=== PATIENT | female | born 1990 | race Caucasian/White ===

== ENCOUNTER 2020-10-07 11:57 | Emergency (ER) | payer OTHER, SELFPAY ==
[2020-10-07 12:29] VITALS: BP 174/107; PULSE 95; RESP 18; TEMP 36.9; O2SAT 100; BMI 38.5
--- NOTE | 2020-10-07 12:57 | W.ED.GENADLT ---
HPI - General Adult General: Chief complaint: General Medical Stated complaint: HTN, N/V Time Seen by Provider: 10/07/20 12:44 History of Present Illness: HPI narrative: The patient is a 30-year-old female who comes to the ER complaining of nausea, vomiting, high blood pressure, and migraine. She says she is on day 4 of a migraine and had some tingling in her right arm earlier today which has improved except she has mild tingling in her right thumb left over. She says she gets these problems with her migraine and they usually resolve after the fourth day and a good rest. 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 She takes enalapril for her blood pressure. When she does not have a headache her blood pressure is usually normal. Her job placement specialist asked her to get her blood pressure lowered and he will change the medications for her blood pressure regimen upon release. Onset (ago): day(s) (4) Location: head Severity: moderate Quality: sharp Pain Consistency: constant Relieving factors: none Exacerbating factors: none Associated symptoms: Reports headache(s), nausea and vomiting; Deny chest pain, confusion, dyspnea, rash or palpitations Review of Systems General: Reports: 10 or more systems reviewed and unremarkable except in HPI and below Const: Denies: fatigue Eyes: Denies: change in vision, blurry vision or eye redness ENMT: Denies: throat pain, swelling of lips/tongue, ear or mastoid pain or nasal congestion Card: Denies: chest pain, palpitations, irregular heart rhythm, edema, dyspnea on exertion or orthopnea Resp: Denies: dyspnea, productive cough or non-productive cough GI: Reports: nausea and vomiting : Denies: flank pain, difficulty voiding, urinary frequency or urinary urgency Musc: Denies: neck pain, back pain, extremity pain, joint pain, joint redness, limited range of motion or muscle weakness Skin/Breast: Denies: rash, pruritus, erythema, skin pain or skin tenderness Neuro: Reports: headache(s); Denies: numbness in extremities, weakness in extremities, sensory changes, difficulty walking, dizziness, confusion or Slurred speech present Psych: Denies: anxiety or depression Endo: Denies: polyuria All/Imm: Denies: urticaria, throat swelling or tongue swelling Physical Exam Const: COMMON NORMALS: no acute distress, average body habitus, patient oriented x3, no limitations, healthy appearing, alert and well nourished GENERAL APPEARANCE: cooperative, comfortable, well kempt and well developed ORIENTATION/CONSCIOUSNESS: Yes awake, Yes oriented to person, Yes oriented to place and Yes oriented to time HENMT: COMMON NORMALS: normocephalic, external ears normal and Normal external nose present HEAD & SCALP: normal to inspection and normocephalic NOSE: Normal external nose present EXTERNAL EAR: Yes external ears normal MOUTH: Normal oral and palatal mucosa present THROAT: posterior oropharynx normal Eye: COMMON NORMALS: Equal, round and reactive pupils present and EOMs intact bilaterally GENERAL EYE: appearance normal, both eyes and all related structures PUPIL: Yes Equal, round and reactive pupils present Neck/C-Spine: COMMON NORMALS: full ROM, no lymphadenopathy, no meningeal signs and no JVD GENERAL: Yes normal visual inspection Lymph: LYMPHATIC: no lymphadenopathy noted Chest: COMMONS NORMALS: normal inspection of the chest and normal palpation of entire chest wall Resp: COMMON NORMALS: normal respiratory effort, No retractions, No use of accessory muscles, clear to auscultation bilaterally and percussion normal EFFORT & INSPECTION: Yes able to speak in complete sentences AUSCULTATION: clear to auscultation bilaterally PERCUSSION: percussion normal Cardio: COMMON NORMALS: no JVD, regular rate, regular rhythm, S1 normal heart sound present, S2 normal heart sound present and Peripheral pulses 2+ throughout RATE: regular rate RHYTHM: regular rhythm HEART SOUNDS: S1 normal heart sound present and S2 normal heart sound present PERIPHERAL PULSES: Peripheral pulses 2+ throughout GI: COMMON NORMALS: Normal to inspection, nondistended, normoactive bowel sounds present, Soft to palpation, non-tender and no masses INSPECTION: Yes normal to inspection PALPATION: Yes Soft to palpation : COMMON NORMALS: Yes no CVA tenderness BLADDER/KIDNEY EXAM: Yes no CVA tenderness Back/Pelvis: COMMON NORMALS: no CVA tenderness, thoracic and lumbar spine normal to inspection, no thoracic nor lumbar tenderness and thoraco-lumbar ROM normal Extremity: COMMON NORMALS: normal to inspection, full ROM, capillary refill normal, no joint enlargement and no pedal edema GENERAL: Yes normal exam except as noted Neuro: COMMON NORMALS: patient oriented x3, CN's II-XII intact bilaterally, moves all extremities, no focal motor deficits, no sensory deficits noted and gait normal SENSORIUM/ORIENTATION: Yes alert, Yes oriented to person, Yes oriented to place and Yes oriented to time MENINGEAL SIGNS: Yes no meningeal signs Psych: COMMON NORMALS: mental status grossly normal, Normal thought process present, cooperative, normal affect and speech normal APPEARANCE: Yes well kempt ATTITUDE: Yes calm SPEECH: Yes normal speech THOUGHT PROCESS: Normal thought process present Skin: COMMON NORMALS: no rashes or lesions noted GENERAL SKIN EXAM: no rashes or lesions noted Course Vital Signs: Vital signs: Vital Signs Temperature 98.4 F 10/07/20 12:29 Pulse Rate 60 10/07/20 14:37 Respiratory Rate 16 10/07/20 14:37 Blood Pressure 139/84 10/07/20 14:37 Pulse Oximetry 99 10/07/20 14:37 MDM - General Adult MDM Narrative: Medical decision making narrative: Her headache and blood pressure improved after the fluids, clonidine, Zofran. She is requesting discharge. She will follow up with her nephrology specialist later today to discuss her blood pressure medication further and I recommended she follow-up with primary care early next week for a checkup. ER with worsening symptoms at any time Lab Data: Labs: Lab Results 10/07/20 10/07/20 10/07/20 Range/Units 13:05 13:05 13:05 WBC 11.2 H (4.0-10.0) 10^3/ uL RBC 4.84 (4.1-5.3) 10^6/u L Hgb 10.2 L (11.5-15.3) g/dL Hct 32.7 L (37.0-47.0) % MCV 67.6 L (81-99) fL MCH 21.1 L (28.0-34.0) pg MCHC 31.2 (30.0-36.0) g/dL RDW 20.1 H (12.1-15.1) % Plt Count 399 (130-400) 10^3/c mm MPV 11.4 H (7.4-10.4) fL Neut % (Auto) 69.1 % Lymph % (Auto) 21.6 % [place] % (Auto) 5.9 % Eos % (Auto) 2.3 % Baso % (Auto) 0.6 % Neut # (Auto) 7.70 (1.8-7.7) 10^3/u L Lymph # (Auto) 2.4 (0.8-4.8) 10^3/u L [place] # (Auto) 0.7 (0.2-0.9) 10^3/u L Eos # (Auto) 0.3 (0.0-0.8) 10^3/u L Baso # (Auto) 0.1 (0.0-0.1) 10^3/u L Nucleated RBC % (a uto) 0 % Nucleated RBCs # 0.0 /100WBC Sodium 142 (136-145) mmol/L Potassium 4.0 (3.5-5.1) mmol/L Chloride 108 H (98-107) mmol/L Carbon Dioxide 22 (22-29) mmol/L Anion Gap 16.0 (5-19) BUN 16 (6-20) mg/dL Creatinine 0.7 (0.5-0.9) mg/dL GFR Calculation 98.9 (90-130) mL/min Glucose 80 (65-115) mg/dL Calculated Osmolal ity 294 (285-295) mOsm/k g Calcium 8.5 (8.5-10.5) mg/dL Total Bilirubin 0.3 (0.15-1.2) mg/dL AST 17 (0-32) U/L ALT 16 (0-33) U/L Alkaline Phosphata se 67 (35-105) IU/L Total Protein 6.0 L (6.6-8.7) g/dL Albumin 3.5 (3.5-5.2) g/dL Globulin 2.5 (1.3-4.6) g/dL HCG, Qual Negative (Negative) Discharge Plan Discharge Patient Disposition: Home Clinical Impression: Headache, migraine Condition: Stable Prescriptions: No Action enalapril maleate 5 mg tablet 10 mg PO DAILY@2100 RF: 0 atorvastatin 10 mg tablet 10 mg PO DAILY@2100 RF: 0 mycophenolate mofetil 500 mg tablet 500 mg PO QID RF: 0 Vitamin D3 1 tab PO DAILY@0900 RF: 0 Discharge Orders: Discharge ED (Routine); Ordered 10/07/20 Ordered By: Benjamin Casanova Referrals: Sonny Tabor MD [Primary Care Provider] - Discharge Diet: Advance as tolerated Discharge Activity: Resume usual activity Patient Instructions: Migraine Headache (ED), Opioid Safety Activity Restrictions/Additional Instructions: You have a migraine headache. Please continue to take your medications at home as you normally do and get good rest. Drink lots of fluids as well. Return to the ER with worsening symptoms otherwise follow-up with your specialist later today to discuss your blood pressure medication. Follow-up with your primary care physician early next week for a checkup. ER with worsening symptoms at any time Coding Level of Care Code ED Tong Setter for Jamie Fwd Exam Comprehensive
[2020-10-07 13:09] VITALS: BP 150/80; PULSE 77; RESP 16; O2SAT 99
[2020-10-07] MEDS: sodium chloride 0.9% 1,000 ML 999 ML IV (13:12)
[2020-10-07] MEDS: acetaminophen 325 mg Tablet 650 MG PO (13:13)
[2020-10-07] MEDS: ondansetron 2 mg/ML SDV 2 mL 4 MG IVP (13:13)
[2020-10-07 13:14] LABS: Basophils # 0.1 10^3/uL (0.0-0.1); Basophils % 0.6 %; Eosinophils # 0.3 10^3/uL (0.0-0.8); Eosinophils % 2.3 %; Hematocrit 32.7 % (37.0-47.0); Hemoglobin 10.2 g/dL (11.5-15.3); Lymphocytes # 2.4 10^3/uL (0.8-4.8); Lymphocytes % 21.6 %; Mean Corpuscular HGB Conc 31.2 g/dL (30.0-36.0); Mean Corpuscular Hemoglobin 21.1 pg (28.0-34.0); Mean Corpuscular Volume 67.6 fL (81-99); Mean Platelet Volume 11.4 fL (7.4-10.4); Monocytes # 0.7 10^3/uL (0.2-0.9); Monocytes % 5.9 %; Neutrophils % 69.1 %; Nucleated Red Blood Cells % 0 %; Platelet Count 399 10^3/cmm (130-400); Red Blood Count 4.84 10^6/uL (4.1-5.3); Red Cell Distribution Width 20.1 % (12.1-15.1); White Blood Count 11.2 10^3/uL (4.0-10.0)
[2020-10-07 13:30] LABS: HCG, Serum Qual Negative (Negative)
[2020-10-07 13:35] LABS: Alanine Aminotransferase 16 U/L (0-33); Albumin Level 3.5 g/dL (3.5-5.2); Alkaline Phosphatase 67 IU/L (35-105); Aspartate Amino Transferase 17 U/L (0-32); Blood Urea Nitrogen 16 mg/dL (6-20); Calcium 8.5 mg/dL (8.5-10.5); Carbon Dioxide 22 mmol/L (22-29); Chloride 108 mmol/L (98-107); Globulin 2.5 g/dL (1.3-4.6); Glomerular Filtration Rate 98.9 mL/min (90-130); Glucose 80 mg/dL (65-115); Osmolality Calculated 294 mOsm/kg (285-295); Sodium 142 mmol/L (136-145); Total Bilirubin 0.3 mg/dL (0.15-1.2)
[2020-10-07 13:47] VITALS: BP 158/75
[2020-10-07] MEDS: cloNIDine 0.1 mg Tablet PO (13:47)
[2020-10-07 14:02] LABS: Slide Review Slide Review Perform
[2020-10-07 14:37] VITALS: BP 139/84; PULSE 60; RESP 16; O2SAT 99
[2020-10-07 15:53] VITALS: BP 128/72; PULSE 52; RESP 16; O2SAT 99
== END 2020-10-07 15:56 | disposition home or self-care (01) ==
PROVIDERS: Emergency Provider Family Medicine; PCP Family Medicine
DX: G43.909 Migraine, unspecified, not intractable, without status migrainosus (principal)
CPT/HCPCS: 80053; 84703; 85025; 96361; 96374; 99283; J2405; J7030

== ENCOUNTER 2022-05-20 19:25 | Observation (INO) | payer OTHER, SELFPAY ==
[2022-05-20 19:36] VITALS: BP 163/101; PULSE 98; RESP 18; TEMP 36.7; O2SAT 100; BMI 41.9
--- NOTE | 2022-05-20 20:13 | XRR_ITS ---
PROCEDURE INFORMATION: Exam: XR Soft Tissue Neck Exam date and time: 05/20/2022 8:38 PM Age: 31 years old Clinical indication: Dysphagia / difficulty swallowing TECHNIQUE: Imaging protocol: Radiologic exam of the soft tissues of the neck. COMPARISON: CT cervical spin wo con* [id number] 09/06/2017 9:51 PM FINDINGS: Airway: Normal. No abnormal narrowing. Soft tissues: Normal. Normal epiglottis. Bones/joints: Unremarkable. XR/XR soft tissue neck [id number] IMPRESSION: No acute findings.
--- NOTE | 2022-05-20 20:13 | XRR_ITS ---
PROCEDURE INFORMATION: Exam: XR Chest Exam date and time: 05/20/2022 8:38 PM Age: 31 years old Clinical indication: Cough TECHNIQUE: Imaging protocol: Radiologic exam of the chest. Views: 2 views. COMPARISON: CR XR ribs RT mn 3V w CXR1V [id number] 01/31/2021 11:03 AM FINDINGS: Lungs: Unremarkable. No consolidation. Pleural spaces: Unremarkable. No pleural effusion. No pneumothorax. Heart/Mediastinum: Unremarkable. No cardiomegaly. Bones/joints: Unremarkable. Unchanged dextroscoliosis. XR/XR chest 2V* [id number] IMPRESSION: No acute findings.
--- NOTE | 2022-05-20 20:15 | W.ED.GENADLT ---
HPI - General Adult General: Chief complaint: General Medical Stated complaint: feels like she is choking Time Seen by Provider: 05/20/22 20:05 History of Present Illness: 31-year-old female presents with difficulty swallowing and difficulty keeping anything down and she feels like she is choking. Reports a start about a week ago with just a cough and was coughing up a lot of phlegm and reports she started having hard time just keeping food down but no difficulty with liquids. She reports that today she is having difficulty with liquids and just cannot keep bending down. Patient reports that initially it felt like someone was stuck down in her mid chest but now is in her mid throat. She does not recall eating anything prior to the incident happening Associated symptoms: Reports vomiting; Deny chest pain, dyspnea, headache(s), rash or palpitations Review of Systems Const: Denies: fever(s) or chills ENMT: Reports: odynophagia Card: Denies: chest pain or palpitations Resp: Reports: productive cough; Denies: dyspnea GI: Reports: vomiting and dysphagia; Denies: diarrhea or constipation : Denies: flank pain or difficulty voiding Skin/Breast: Denies: rash Neuro: Denies: headache(s) or numbness in extremities Physical Exam Const: COMMON NORMALS: no acute distress, patient oriented x3 and alert Resp: COMMON NORMALS: normal respiratory effort, No use of accessory muscles and clear to auscultation bilaterally AUSCULTATION: clear to auscultation bilaterally Cardio: COMMON NORMALS: regular rate and regular rhythm RATE: regular rate RHYTHM: regular rhythm GI: COMMON NORMALS: Soft to palpation and non-tender PALPATION: Yes Soft to palpation Extremity: COMMON NORMALS: normal to inspection and full ROM Neuro: COMMON NORMALS: patient oriented x3 SENSORIUM/ORIENTATION: Yes alert Psych: COMMON NORMALS: mental status grossly normal, cooperative, normal affect and speech normal SPEECH: Yes normal speech Skin: COMMON NORMALS: no rashes or lesions noted and turgor normal GENERAL SKIN EXAM: no rashes or lesions noted and turgor normal Course Vital Signs: Vital signs: Vital Signs Temperature 98.1 F 05/20/22 19:36 Pulse Rate 72 05/20/22 22:35 Respiratory Rate 15 05/20/22 22:35 Blood Pressure 176/114 05/20/22 22:35 Pulse Oximetry 99 05/20/22 22:35 Oxygen Delivery Me thod 05/20/22 21:14 MDM - General Adult Medical Decision Making Patient CT shows esophageal stricture likely gastroesophageal junction with no oral contrast going into the stomach. Discussed with Dr. Padilla. We will admit patient n.p.o., IV fluids and he will perform an EGD in the morning for further evaluation. Patient stable upon admission to the floor Lab Data 05/20/22 20:15 05/20/22 20:15 Radiology Impressions Chest X-Ray 05/20/22 20:13 IMPRESSION: No acute findings. Soft Tissue Neck X-Ray 05/20/22 20:13 IMPRESSION: No acute findings. Chest CT 05/20/22 21:28 IMPRESSION: 1. Radiopaque contrast in the thoracic esophagus with an air-fluid level. This is consistent with stasis with no radiopaque material in the stomach. A stricture in the region of the gastroesophageal junction is not excluded. Follow-up with esophagram and/or EGD is suggested. Laboratory Results WBC 14.4 10^3/uL (4.0-10.0) H 05/20/22 20:15 RBC 4.67 10^6/uL (4.1-5.3) 05/20/22 20:15 Hgb 9.9 g/dL (11.5-15.3) L 05/20/22 20:15 Hct 31.9 % (37.0-47.0) L 05/20/22 20:15 MCV 68.3 fl (81-99) L 05/20/22 20:15 MCH 21.2 pg (28.0-34.0) L 05/20/22 20:15 MCHC 31.0 g/dL (30.0-36.0) 05/20/22 20:15 RDW 19.9 % (12.1-15.1) H 05/20/22 20:15 Plt Count 443 10^3/cmm (130-400) H 05/20/22 20:15 MPV 10.6 fL (7.4-10.4) H 05/20/22 20:15 Neut % (Auto) 62.9 % 05/20/22 20:15 Lymph % (Auto) 25.4 % 05/20/22 20:15 [place] % (Auto) 7.2 % 05/20/22 20:15 Eos % (Auto) 3.1 % 05/20/22 20:15 Baso % (Auto) 0.6 % 05/20/22 20:15 Neut # (Auto) 9.04 10^3/uL (1.8-7.7) H 05/20/22 20:15 Lymph # (Auto) 3.7 10^3/uL (0.8-4.8) 05/20/22 20:15 [place] # (Auto) 1.0 10^3/uL (0.2-0.9) H 05/20/22 20:15 Eos # (Auto) 0.4 10^3/uL (0.0-0.8) 05/20/22 20:15 Baso # (Auto) 0.1 10^3/uL (0.0-0.1) 05/20/22 20:15 Nucleated RBC % (auto) 0 % 05/20/22 20:15 Nucleated RBCs # 0.0 /100WBC 05/20/22 20:15 Sodium 139 mmol/L (136-145) 05/20/22 20:15 Potassium 3.8 mmol/L (3.5-5.1) 05/20/22 20:15 Chloride 104 mmol/L (98-107) 05/20/22 20:15 Carbon Dioxide 26 mmol/L (22-29) 05/20/22 20:15 Anion Gap 12.8 (5-19) 05/20/22 20:15 BUN 13 mg/dL (6-20) 05/20/22 20:15 Creatinine 0.8 mg/dL (0.5-0.9) 05/20/22 20:15 GFR Calculation 84.2 mL/min (90-130) L 05/20/22 20:15 Glucose 96 mg/dL (65-115) 05/20/22 20:15 Calculated Osmolality 288 mOsm/kg (285-295) 05/20/22 20:15 Calcium 8.4 mg/dL (8.5-10.5) L 05/20/22 20:15 Total Bilirubin 0.2 mg/dL (0.15-1.2) 05/20/22 20:15 AST 14 U/L (0-32) 05/20/22 20:15 ALT 13 U/L (0-33) 05/20/22 20:15 Alkaline Phosphatase 86 U/L (35-105) 05/20/22 20:15 Total Protein 6.5 g/dL (6.6-8.7) L 05/20/22 20:15 Albumin 3.3 g/dL (3.5-5.2) L 05/20/22 20:15 Globulin 3.2 g/dL (1.3-4.6) 05/20/22 20:15 Discharge Plan Discharge Patient Disposition: Admitted As Inpatient Clinical Impression: Esophageal abnormality Condition: Stable Coding Level of Care Code ED Product Merchandiser for Chg Fwd Exam Detailed
[2022-05-20] MEDS: ondansetron 2 mg/ML SDV 2 mL 4 MG IVP (20:32)
[2022-05-20] MEDS: sodium chloride 0.9% 1,000 ML 999 ML IV (20:32)
[2022-05-20 20:35] LABS: Basophils # 0.1 10^3/uL (0.0-0.1); Basophils % 0.6 %; Eosinophils # 0.4 10^3/uL (0.0-0.8); Eosinophils % 3.1 %; Hematocrit 31.9 % (37.0-47.0); Hemoglobin 9.9 g/dL (11.5-15.3); Lymphocytes # 3.7 10^3/uL (0.8-4.8); Lymphocytes % 25.4 %; Mean Corpuscular Hemoglobin 21.2 pg (28.0-34.0); Mean Corpuscular Volume 68.3 fl (81-99); Mean Platelet Volume 10.6 fL (7.4-10.4); Monocytes % 7.2 %; Neutrophils # 9.04 10^3/uL (1.8-7.7); Neutrophils % 62.9 %; Nucleated Red Blood Cells % 0 %; Platelet Count 443 10^3/cmm (130-400); Red Blood Count 4.67 10^6/uL (4.1-5.3); Red Cell Distribution Width 19.9 % (12.1-15.1); White Blood Count 14.4 10^3/uL (4.0-10.0)
[2022-05-20 20:37] VITALS: BP 161/113; PULSE 81; RESP 15; O2SAT 99
[2022-05-20 20:53] LABS: Alanine Aminotransferase 13 U/L (0-33); Albumin Level 3.3 g/dL (3.5-5.2); Alkaline Phosphatase 86 U/L (35-105); Anion Gap 12.8 (5-19); Aspartate Amino Transferase 14 U/L (0-32); Blood Urea Nitrogen 13 mg/dL (6-20); Calcium 8.4 mg/dL (8.5-10.5); Carbon Dioxide 26 mmol/L (22-29); Chloride 104 mmol/L (98-107); Globulin 3.2 g/dL (1.3-4.6); Glomerular Filtration Rate 84.2 mL/min (90-130); Glucose 96 mg/dL (65-115); Osmolality Calculated 288 mOsm/kg (285-295); Potassium 3.8 mmol/L (3.5-5.1); Sodium 139 mmol/L (136-145); Total Bilirubin 0.2 mg/dL (0.15-1.2); Total Protein 6.5 g/dL (6.6-8.7)
[2022-05-20 21:14] VITALS: BP 164/108; PULSE 82; RESP 15; O2SAT 98
--- NOTE | 2022-05-20 21:28 | CTR_ITS ---
PROCEDURE INFORMATION: Exam: CT Chest Without Contrast; Diagnostic Exam date and time: 05/20/2022 9:45 PM Age: 31 years old Clinical indication: Other: Difficulty swallowing; Patient HX: Oral contrast given; Additional info: Esophagram, question obstruction TECHNIQUE: Imaging protocol: Diagnostic computed tomography of the chest without contrast. Radiation optimization: All CT scans at this facility use at least one of these dose optimization techniques: automated exposure control; mA and/or kV adjustment per patient size (includes targeted exams where dose is matched to clinical indication); or iterative reconstruction. COMPARISON: CR XR chest 2V* [id number] 05/20/2022 8:38 PM RADIATION DOSE METRICS: Total DLP (mGy-cm): 1692.79 FINDINGS: Lungs: Unremarkable. No consolidation. No masses. Pleural spaces: Unremarkable. No pneumothorax. No pleural effusion. Heart: No coronary artery calcifications. No cardiomegaly. No pericardial effusion. Mediastinal space: Radiopaque contrast material with air-fluid level in the esophagus. No mass or definite wall thickening. Lymph nodes: Unremarkable. No enlarged lymph nodes. Vasculature: Unremarkable. No aortic aneurysm. Gallbladder and bile ducts: Cholecystectomy. Bones/joints: Thoracic scoliosis. No fracture. Soft tissues: Unremarkable. CT/CT chest wo con [id number] IMPRESSION: 1. Radiopaque contrast in the thoracic esophagus with an air-fluid level. This is consistent with stasis with no radiopaque material in the stomach. A stricture in the region of the gastroesophageal junction is not excluded. Follow-up with esophagram and/or EGD is suggested.
[2022-05-20 22:35] VITALS: BP 176/114; PULSE 72; RESP 15; O2SAT 99
[2022-05-20 23:04] VITALS: BMI 41.9
[2022-05-20] MEDS: sodium chloride 0.9% 1,000 ML 100 ML IV (23:15)
--- NOTE | 2022-05-20 23:45 | PC.ADMIT ---
Admission Note: Patient was transferred to floor at 2300. Admission and physical assessments are complete at this time. Patient has been oriented to room, call light is in reach, 2 bed rails up and all patient's questions have answered at this time.
[2022-05-21] VITALS: BP 150/85; PULSE 86; RESP 17; TEMP 36.6; O2SAT 97
[2022-05-21 04:00] VITALS: BP 145/89; PULSE 91; RESP 17; TEMP 36.6; O2SAT 95
[2022-05-21] MEDS: sodium chloride 0.9% 1,000 ML 100 ML IV (07:33)
[2022-05-21 07:56] VITALS: BP 147/90; PULSE 89; RESP 18; TEMP 36.8; O2SAT 96
--- NOTE | 2022-05-21 08:57 | P.HP_ITS ---
Providers/Chief Complaint Admitting Physician: Jluis Padilla DO Primary Care Provider: Sonny Tabor MD Chief Complaint: feels like she is choking History of Present Illness Christine Jacobs is a 31 year old female who presents to the hospital with a 1 week history of progressive dysphagia. She reports that ever since just before she has had multiple episodes where she would eat something and then 30 minutes later regurgitate everything. She denies any abdominal pain. She reports that she has been having diarrhea. She denies any blood in her vomit. Yesterday she was unable to swallow her own saliva so she went to the ER. In the ER a CT of the chest showed no contrast going past the GE junction. She reports that after the CT she has been able to swallow her saliva fine. Review of Systems General: Reports: 10 or more systems reviewed and unremarkable except in HPI and below Medications/Allergies Home Medications Medication Instructions Recorded Confirmed Last Taken Type mycophenolate mofetil 500 mg tablet 500 mg PO BID 10/07/20 05/21/22 10/07/20 History enalapril maleate 20 mg tablet 20 mg PO DAILY 05/21/22 05/21/22 Unknown History hydralazine 25 mg tablet 25 mg PO BID 05/21/22 05/21/22 Unknown History Allergies Allergy/AdvReac Type Severity Reaction Status Date / Time No Known Allergies Allergy Verified 05/21/22 08:12 Vitals/I&O/Wt Last Vital Signs Temp 98.2 F 05/21/22 07:56 Pulse 89 05/21/22 07:56 Resp 18 05/21/22 07:56 BP 147/90 05/21/22 07:56 Pulse Ox 96 05/21/22 07:56 O2 Del Method 05/21/22 07:56 05/20/22 05/21/22 05/21/22 22:59 06:59 14:59 Intake Total 1000 / 1000 830 / 830 Balance 1000 / 1000 830 / 830 Weight last 48 hrs Weight 260 lb Weight 260 lb Physical Exam Narrative: General : Patient is well developed , no acute distress, oriented x3 Head : Normal cephalic, a-traumatic. Ears : Pinnae and external canal are normal. Hearing is normal. Eyes : PERRLA, Sclera and injection are normal. No conjunctival discharge. Nose : Mucous membranes are without erythema. Throat : buccal mucosa is normal, gums are without significant recession or hypertrophy. Lungs : Equal chest rise bilaterally, no use of accessory muscles, trachea is midline. Cor : Rate and rhythm are normal. Abdomen : Soft, ND, NT, no g/r/m Extremities : No edema, no cyanosis or clubbing, dorsalis pedis pulses are present bilaterally, non-tender to palpation of calves. Upper extremities are normal bilaterally. Back : non-tender to palpation, no CVA tenderness. Neuro : CN II - XII intact, Upper and lower extremities have equal and full strength Data 05/20/22 20:15 05/20/22 20:15 A&P Assessment and plan (1) Dysphagia: (2) Esophageal obstruction: Plan EGD with possible balloon dilation The risks and benefits of the procedure, including bleeding, infection, intestinal perforation requiring surgery, missed lesion were explained to the patient. The patient is understanding of the risks and wishes to proceed. Attestations Medical Necessity Statement*: Patient will likely be discharged home after the procedure unless there are complications Coding Level of Care Code Acute Learning Specialist for g Fwd Diagnoses Dysphagia R13.10 Esophageal obstruction K22.2
--- NOTE | 2022-05-21 09:20 | P.ANESASSM_ITS ---
Pre-Anesthetic Assessment Height/Weight: Height 1.68 m Weight 117.934 kg Temp Pulse Resp BP Pulse Ox O2 Del Method 98.2 F 89 18 147/90 96 05/21/22 07:56 05/21/22 07:56 05/21/22 07:56 05/21/22 07:56 05/21/22 07:56 05/21/22 07:56 Operation Date: 05/21/22 09:00 Proposed Procedures p EGD(Not Applicable) - Jluis Padilla DO Familial anesthetic complications: None Was Beta Bronwyn taken within 24 hours: N/A Was Clonidine taken within 24 hours: N/A Social No alcohol and No tobacco Exam alert, oriented x 3, clear to auscultation bilaterally and regular rate & rhythm Airway Submandibular: within normal limits Cervical ROM: within normal limits Mallampati: Class II Dentition: full CV/HEM Hypertension Dense deposit syndrome--chronic renal insufficiency (Cr 0.8) Metabolic Morbid Obesity Anesthetic Plan ASA status: 2 Anesthesia: MAC Medications/Allergies Home Medications Medication Instructions Recorded Confirmed Last Taken Type mycophenolate mofetil 500 mg tablet 500 mg PO BID 10/07/20 05/21/22 10/07/20 H istory enalapril maleate 20 mg tablet 20 mg PO DAILY 05/21/22 05/21/22 Unknown History hydralazine 25 mg tablet 25 mg PO BID 05/21/22 05/21/22 Unknown History Allergies Allergy/AdvReac Type Severity Reaction Status Date / Time No Known Allergies Allergy Verified 05/21/22 08:12 Current Medications Generic Name Dose Route Start Last Admin Trade Name Freq PRN Reason Stop Dose Admin Sodium Chloride 1,000 mls @ 100 mls/hr 05/20/22 22:45 05/21/22 07:33 Sodium Chloride 0.9% IV 100 mls/hr .Q10H CIERRA Administration Data Anesthesia 05/20/22 20:15 05/20/22 20:15 Short CBC 05/20/22 Range/Units 20:15 WBC 14.4 H (4.0-10.0) 10^3/uL Hgb 9.9 L (11.5-15.3) g/dL Hct 31.9 L (37.0-47.0) % MCV 68.3 L (81-99) fl Plt Count 443 H (130-400) 10^3/cmm Neut % (Auto) 62.9 % Neut # (Auto) 9.04 H (1.8-7.7) 10^3/uL BMP 05/20/22 20:15 Sodium 139 Potassium 3.8 Chloride 104 Carbon Dioxide 26 BUN 13 Creatinine 0.8 Glucose 96 Calcium 8.4 L Liver Function 05/20/22 Range/Units 20:15 Total Bilirubin 0.2 (0.15-1.2) mg/dL AST 14 (0-32) U/L ALT 13 (0-33) U/L Alkaline Phosphatase 86 (35-105) U/L Albumin 3.3 L (3.5-5.2) g/dL Cardiac Studies: No Data to Display
[2022-05-21 09:27] VITALS: BP 148/86; PULSE 96; RESP 16; TEMP 36.6; O2SAT 100
[2022-05-21 09:36] VITALS: BP 152/93; PULSE 95; RESP 16; O2SAT 99
--- NOTE | 2022-05-21 09:36 | ANE.PACU2 ---
Inpatient post-anesthesia follow up: Airway intact: Yes Vital signs: Temperature 97.9 F Pulse Rate 96 Respiratory Rate 16 Blood Pressure 148/86 Pulse Oximetry 100 Oxygen Delivery Me thod Nasal Cannula Oxygen Flow Rate 2 Fraction of Inspir ed Oxygen Hydration adequate: Yes Nausea and vomiting: No Pain level: 1 Mental status: Baseline
--- NOTE | 2022-05-21 09:50 | PM.DCS ---
Discharge Providers Date of Admission: 05/20/22 22:32 Date of Discharge: May 21, 2022 Attending Provider at Admission: Jluis Padilla DO Attending Provider at Discharge: Jluis Padilla DO Primary Care Provider: Sonny Tabor MD Diagnoses at Discharge Discharge Diagnosis (1) Dysphagia: Status: Acute (2) Esophageal obstruction: Status: Acute Reason for Visit Reason for Visit: feels like she is choking Hospital Course Hospital Course Patient presented to the hospital with inability to swallow her own saliva. CT the chest showed oral contrast obstruction at the GE junction. Shortly afterwards she was able to swallow her own saliva. She underwent an EGD and no obstruction was noted. However there was a stricture at the GE junction which was balloon dilated to 20 mm. She did well postoperatively and was discharged home in good condition. Physical Exam Narrative: General : Patient is well developed , no acute distress, oriented x3 Head : Normal cephalic, a-traumatic. Ears : Pinnae and external canal are normal. Hearing is normal. Eyes : PERRLA, Sclera and injection are normal. No conjunctival discharge. Nose : Mucous membranes are without erythema. Throat : buccal mucosa is normal, gums are without significant recession or hypertrophy. Lungs : Equal chest rise bilaterally, no use of accessory muscles, trachea is midline. Cor : Rate and rhythm are normal. Abdomen : Soft, ND, NT, no g/r/m Extremities : No edema, no cyanosis or clubbing, dorsalis pedis pulses are present bilaterally, non-tender to palpation of calves. Upper extremities are normal bilaterally. Back : non-tender to palpation, no CVA tenderness. Neuro : CN II - XII intact, Upper and lower extremities have equal and full strength Discharge Data Studies Completed and Pending Completed Studies During Hospitalization Category Date Time Status CT chest wo con [id number] Stat Cat Scan 05/20/22 21:28 Completed XR chest 2V* [id number] Stat Exams 05/20/22 20:13 Completed XR soft tissue neck [id number] Stat Exams 05/20/22 20:13 Completed Radiology Impressions Chest X-Ray 05/20/22 20:13 IMPRESSION: No acute findings. Soft Tissue Neck X-Ray 05/20/22 20:13 IMPRESSION: No acute findings. Chest CT 05/20/22 21:28 IMPRESSION: 1. Radiopaque contrast in the thoracic esophagus with an air-fluid level. This is consistent with stasis with no radiopaque material in the stomach. A stricture in the region of the gastroesophageal junction is not excluded. Follow-up with esophagram and/or EGD is suggested. Laboratory Results WBC 14.4 10^3/uL (4.0-10.0) H 05/20/22 20:15 RBC 4.67 10^6/uL (4.1-5.3) 05/20/22 20:15 Hgb 9.9 g/dL (11.5-15.3) L 05/20/22 20:15 Hct 31.9 % (37.0-47.0) L 05/20/22 20:15 MCV 68.3 fl (81-99) L 05/20/22 20:15 MCH 21.2 pg (28.0-34.0) L 05/20/22 20:15 MCHC 31.0 g/dL (30.0-36.0) 05/20/22 20:15 RDW 19.9 % (12.1-15.1) H 05/20/22 20:15 Plt Count 443 10^3/cmm (130-400) H 05/20/22 20:15 MPV 10.6 fL (7.4-10.4) H 05/20/22 20:15 Neut % (Auto) 62.9 % 05/20/22 20:15 Lymph % (Auto) 25.4 % 05/20/22 20:15 [place] % (Auto) 7.2 % 05/20/22 20:15 Eos % (Auto) 3.1 % 05/20/22 20:15 Baso % (Auto) 0.6 % 05/20/22 20:15 Neut # (Auto) 9.04 10^3/uL (1.8-7.7) H 05/20/22 20:15 Lymph # (Auto) 3.7 10^3/uL (0.8-4.8) 05/20/22 20:15 [place] # (Auto) 1.0 10^3/uL (0.2-0.9) H 05/20/22 20:15 Eos # (Auto) 0.4 10^3/uL (0.0-0.8) 05/20/22 20:15 Baso # (Auto) 0.1 10^3/uL (0.0-0.1) 05/20/22 20:15 Nucleated RBC % (auto) 0 % 05/20/22 20:15 Nucleated RBCs # 0.0 /100WBC 05/20/22 20:15 Sodium 139 mmol/L (136-145) 05/20/22 20:15 Potassium 3.8 mmol/L (3.5-5.1) 05/20/22 20:15 Chloride 104 mmol/L (98-107) 05/20/22 20:15 Carbon Dioxide 26 mmol/L (22-29) 05/20/22 20:15 Anion Gap 12.8 (5-19) 05/20/22 20:15 BUN 13 mg/dL (6-20) 05/20/22 20:15 Creatinine 0.8 mg/dL (0.5-0.9) 05/20/22 20:15 GFR Calculation 84.2 mL/min (90-130) L 05/20/22 20:15 Glucose 96 mg/dL (65-115) 05/20/22 20:15 Calculated Osmolality 288 mOsm/kg (285-295) 05/20/22 20:15 Calcium 8.4 mg/dL (8.5-10.5) L 05/20/22 20:15 Total Bilirubin 0.2 mg/dL (0.15-1.2) 05/20/22 20:15 AST 14 U/L (0-32) 05/20/22 20:15 ALT 13 U/L (0-33) 05/20/22 20:15 Alkaline Phosphatase 86 U/L (35-105) 05/20/22 20:15 Total Protein 6.5 g/dL (6.6-8.7) L 05/20/22 20:15 Albumin 3.3 g/dL (3.5-5.2) L 05/20/22 20:15 Globulin 3.2 g/dL (1.3-4.6) 05/20/22 20:15 Procedures Performed EGD with balloon dilation of esophageal stricture Vitals Last Vital Signs Temp 97.9 F 05/21/22 09:27 Pulse 95 05/21/22 09:36 Resp 16 05/21/22 09:36 BP 152/93 05/21/22 09:36 Pulse Ox 99 05/21/22 09:36 O2 Del Method 05/21/22 09:36 O2 Flow Rate 2 05/21/22 09:27 Discharge Plan Discharge Patient Disposition: Home Condition: Stable Prescriptions: Continued mycophenolate mofetil 500 mg tablet 500 mg PO BID enalapril maleate 20 mg tablet 20 mg PO DAILY hydralazine 25 mg tablet 25 mg PO BID Discharge Orders: Discharge Order (Routine); Ordered 05/21/22 Ordered By: Jluis Padilla Referrals: Sonny Tabor MD [Primary Care Provider] - 4-7 days Discharge Diet: Advance as tolerated Discharge Activity: Resume usual activity Patient Instructions: GI Discharge Instructions, Opioid Safety Discharge Attestations Time Spent in Discharge Care*: less than 30 min Quality Metrics Clinical Quality Measures [ No reported AMI, CVA or VTE this stay] Coding Level of Care Code Acute Chg DC note Diagnoses Dysphagia R13.10 Esophageal obstruction K22.2
--- NOTE | 2022-05-21 09:52 | ANE.PACU2 ---
Inpatient post-anesthesia follow up: Airway intact: Yes Vital signs: Temperature 97.9 F Pulse Rate 95 Respiratory Rate 16 Blood Pressure 152/93 Pulse Oximetry 99 Oxygen Delivery Me thod Room Air Oxygen Flow Rate 2 Fraction of Inspir ed Oxygen Hydration adequate: Yes Nausea and vomiting: No Pain level: 1 Mental status: Baseline
[2022-05-21 10:58] VITALS: BP 152/93; PULSE 95; RESP 16; O2SAT 99
== END 2022-05-21 10:58 | disposition home or self-care (01) ==
LOC: ER 22:32 → MEDSURG 22:50
PROVIDERS: Admitting Provider Surgery; Emergency Provider Student in an Organized Health Care Education/Training Program; PCP Family Medicine; Visit Provider Surgery
DX: R13.10 Dysphagia, unspecified (principal); K22.2 Esophageal obstruction; I10 Essential (primary) hypertension; E66.01 Morbid (severe) obesity due to excess calories; Z68.41 Body mass index [BMI] 40.0-44.9, adult
CPT/HCPCS: 43249; 70360; 71046; 71250; 80053; 85025; 96361; 96374; 96375; 99285; G0378; J0330; J1100; J1610; J2405; J2704; J3010; J7030

== ENCOUNTER → 2023-03-23 10:33 | Outpatient (BNVA) | payer OTHER, SELFPAY | PROVIDERS: PCP Family Medicine; Visit Provider Emergency Medicine | DX: M25.572 Pain in left ankle and joints of left foot (principal) | CPT/HCPCS: 73610 ==

== ENCOUNTER 2024-10-03 06:37 | Emergency (ER) | payer OTHER, SELFPAY ==
[2024-10-03 06:42] VITALS: BP 182/100; PULSE 78; RESP 17; TEMP 37.1; O2SAT 100; BMI 41.9
--- NOTE | 2024-10-03 06:44 | XRR_ITS ---
PROCEDURE INFORMATION: Exam: XR Left Wrist Exam date and time: 10/03/2024 6:51 AM Age: 34 years old Clinical indication: Pain; Wrist; Left TECHNIQUE: Imaging protocol: Radiologic exam of the left wrist. Views: 3 or more views. COMPARISON: No relevant prior studies available. FINDINGS: Bones/joints: Normal. No acute osseous, joint, or soft tissue abnormality. Soft tissues: Normal. XR/XR wrist LT min 3V* [id number] IMPRESSION: No acute findings.
--- NOTE | 2024-10-03 06:58 | ED_ITS ---
HPI - Extremity Problem 2 General: Chief complaint: Extremity Injury, Upper Stated complaint: left wrist injury Time Seen by Provider: 10/03/24 06:40 History of Present Illness: 34-year-old female comes in complaining of left wrist pain when she isolates to the distal ulna regions worse with any movement. She cannot recall any trauma or injury no previous injury or or fracture to that area no previous surgeries. No fever sweats or chills. Related Data Home Medications ?Medication ?Instructions ?Recorded ?Confirmed mycophenolate mofetil 500 mg tablet 500 mg PO BID 09/1810/03/24 hydralazine 25 mg tablet 25 mg PO BID 05/21/22 enalapril maleate 20 mg tablet 40 mg PO DAILY 10/03/24 10/03/24 furosemide 20 mg tablet 20 mg PO DAILY 10/03/2409/17 Previous Rx's ?Medication ?Instructions ?Recorded methylprednisolone 4 mg tablets in See Rx Instructions PO .COMPLEX 10/03/24 a dose pack (Medrol (Kel)) #21 ea Allergies Allergy/AdvReac Type Severity Reaction Status Date / Time No Known Allergies Allergy Verified 08/27/24 10:43 Review of Systems 2 Musc: Reports: joint pain PFSH ED 2 PFSH: Social History Smoking and tobacco/nicotine status: never used tobacco/nicotine Physical Exam 2 Const: COMMON NORMALS: no acute distress GENERAL APPEARANCE: cooperative and comfortable ORIENTATION/CONSCIOUSNESS: Yes awake, Yes oriented to person, Yes oriented to place and Yes oriented to time HENMT: COMMON NORMALS: normocephalic, atraumatic and hearing grossly normal bilaterally HEAD & SCALP: normocephalic and atraumatic Resp: COMMON NORMALS: normal respiratory effort and No use of accessory muscles Extremity: COMMON NORMALS: normal to inspection, capillary refill normal, no clubbing, cyanosis or edema, no calf tenderness and no pedal edema OTHER: Examination of the left wrist patient has significant paid with light touch to the area with pronation and supination at the level of the elbow locking the wrist out she complains of pain as well. 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 Difficult to further assess her wrist as patient is unable to tolerate any range of motion in the wrist itself. Neuro: SENSORIUM/ORIENTATION: Yes oriented to person, Yes oriented to place and Yes oriented to time Skin: COMMON NORMALS: no rashes or lesions noted GENERAL SKIN EXAM: no rashes or lesions noted Course 2 Vital Signs: Vital signs: Vital Signs Temperature 98.7 F 10/03/24 06:42 Pulse Rate 78 10/03/24 08:15 Respiratory Rate 17 10/03/24 06:42 Blood Pressure 172/112 10/03/24 08:15 Pulse Oximetry 99 10/03/24 08:15 Oxygen Delivery Me thod Room Air 10/03/24 06:42 MDM - Extremity (Nontraumatic) Medical Decision Making Limited exam due to pain. There is no rash no skin breakdown no evidence of puncture wounds or injury. There is no obvious deformity no joint effusion on physical exam or on x-ray. X-ray does not show any acute abnormalities or fractures. There is no soft tissue abnormalities on the films in the area patient indicates the most discomfort. White count is normal sed rate is unremarkable. She does have a microcytic anemia however that has been present in the past and it is at approximately the same level she has been evaluated at before. Patient declined Toradol because of concern of effect on kidneys. She was given a prescription for steroid to use as a taper. Placed in a volar splint and will refer her to orthopedics. Medical Records I reviewed the patient's medical records. Lab Data I reviewed the patient's lab results. 10/03/24 07:07 Radiology Impressions Wrist X-Ray 10/03/24 06:44 IMPRESSION: No acute findings. Laboratory Results WBC 9.85 10^3/uL (3.29-11.43) 10/03/24 07:07 RBC 4.66 10^6/uL (3.85-5.65) 10/03/24 07:07 Hgb 9.40 g/dL (11.27-16.99) L 10/03/24 07:07 Hct 32.0 % (36-47) L 10/03/24 07:07 MCV 68.7 fl (85-98) L 10/03/24 07:07 MCH 20.2 pg (27-33) L 10/03/24 07:07 MCHC 29.4 g/dL (30-55) L 10/03/24 07:07 RDW 20.3 % (12.1-15.1) H 10/03/24 07:07 Plt Count 404 10^3/cmm (157-399) H 10/03/24 07:07 MPV 11.2 fL (7.4-10.4) H 10/03/24 07:07 Neut % (Auto) 65.9 % 10/03/24 07:07 Lymph % (Auto) 22.1 % 10/03/24 07:07 [place] % (Auto) 8.0 % 10/03/24 07:07 Eos % (Auto) 3.1 % 10/03/24 07:07 Baso % (Auto) 0.6 % 10/03/24 07:07 Neut # (Auto) 6.48 10^3/uL (1.8-7.7) 10/03/24 07:07 Lymph # (Auto) 2.2 10^3/uL (0.8-4.8) 10/03/24 07:07 [place] # (Auto) 0.8 10^3/uL (0.2-0.9) 10/03/24 07:07 Eos # (Auto) 0.3 10^3/uL (0.0-0.8) 10/03/24 07:07 Baso # (Auto) 0.1 10^3/uL (0.0-0.1) 10/03/24 07:07 Nucleated RBC % (auto) 0 % 10/03/24 07:07 Nucleated RBCs # 0.0 /100WBC 10/03/24 07:07 C-Reactive Protein 3.0 mg/L (0.0-4.9) 10/03/24 07:07 All radiology interpretation(s) finalized by discharge Discharge Plan Discharge Patient Disposition: Home Clinical Impression: Sprain and strain of wrist Condition: Stable Prescriptions: New methylprednisolone [Medrol (Kel)] 4 mg tablets,dose pack See Rx Instructions .ROUTE .COMPLEX Qty: 21 0RF Rx Instructions: orally per package directions No Action mycophenolate mofetil 500 mg tablet 500 mg PO BID hydralazine 25 mg tablet 25 mg PO BID enalapril maleate 20 mg tablet 40 mg PO DAILY furosemide 20 mg tablet 20 mg PO DAILY Discharge Orders: Discharge ED (Routine); Ordered 10/03/24 Ordered By: Hema Thompson Referrals: Sonny Tabor MD [Primary Care Provider, [facility]] Discharge Diet: Usual diet Discharge Activity: Limit activity as instructed Patient Instructions: Opioid Safety, Pain Management Activity Restrictions/Additional Instructions: Thank you for choosing [facility] for your healthcare needs today. It is very important that you follow up as instructed or that you return to the Emergency Department should you have concerns or if your condition changes or worsens in any way. You were seen in the emergency room with complaint of left wrist pain. Your x- ray did not show any acute findings on exam there is no evidence of neurologic or vascular compromise no evidence of joint effusion. Will place on prednisone taper and place you in a wrist splint. manager qa will make arrangements for you to follow-up with orthopedics. Print Language: [place] Coding Level of Care Code ED Plug Stitcher for Jamie Kamara
[2024-10-03 07:13] LABS: Basophils # 0.1 10^3/uL (0.0-0.1); Basophils % 0.6 %; Eosinophils # 0.3 10^3/uL (0.0-0.8); Eosinophils % 3.1 %; Lymphocytes # 2.2 10^3/uL (0.8-4.8); Lymphocytes % 22.1 %; Mean Corpuscular HGB Conc 29.4 g/dL (30-55); Mean Corpuscular Hemoglobin 20.2 pg (27-33); Mean Corpuscular Volume 68.7 fl (85-98); Mean Platelet Volume 11.2 fL (7.4-10.4); Monocytes # 0.8 10^3/uL (0.2-0.9); Neutrophils # 6.48 10^3/uL (1.8-7.7); Neutrophils % 65.9 %; Nucleated Red Blood Cells % 0 %; Platelet Count 404 10^3/cmm (157-399); Red Blood Count 4.66 10^6/uL (3.85-5.65); Red Cell Distribution Width 20.3 % (12.1-15.1); White Blood Count 9.85 10^3/uL (3.29-11.43)
[2024-10-03 07:20] VITALS: BP 167/97; PULSE 82; O2SAT 99
[2024-10-03 08:15] VITALS: BP 172/112; PULSE 78; O2SAT 99
== END 2024-10-03 08:15 | disposition home or self-care (01) ==
PROVIDERS: Emergency Provider Family Medicine; PCP Family Medicine
DX: S63.502A Unspecified sprain of left wrist, initial encounter (principal); X58.XXXA Exposure to other specified factors, initial encounter
CPT/HCPCS: 29125; 73110; 85025; 86140; 99284

== ENCOUNTER → 2024-10-08 15:34 | Outpatient (BNVA) | payer OTHER, SELFPAY | PROVIDERS: PCP Family Medicine; Visit Provider Orthopaedic Surgery | DX: S63.502A Unspecified sprain of left wrist, initial encounter (principal); S66.912A Strain of unspecified muscle, fascia and tendon at wrist and hand level, left hand, initial encounter; X58.XXXA Exposure to other specified factors, initial encounter | CPT/HCPCS: 73110 ==

== ENCOUNTER → 2024-10-27 08:20 | Outpatient (BNVA) | payer OTHER, SELFPAY | PROVIDERS: PCP Family Medicine; Visit Provider Orthopaedic Surgery | DX: M25.532 Pain in left wrist (principal) | CPT/HCPCS: 73110 ==

== ENCOUNTER 2024-12-23 08:26 | Oncology outpatient (recurring) (ONCR) | payer OTHER, SELFPAY ==
[2024-12-23 08:45] VITALS: BP 154/86; PULSE 80; TEMP 36.5; O2SAT 99
[2024-12-23] MEDS: diphenhydrAMINE 50 mg/mL SDV 1mL 25 MG IVP (09:31)
[2024-12-23] MEDS: iron dextran 975 MG in sodium chloride 0.9% 1,000 ML 250.75 MG IV (11:21)
[2024-12-23 15:51] VITALS: BP 164/96; PULSE 61; TEMP 36.7; O2SAT 97
== END 2025-01-17 23:59 | disposition home or self-care (01) ==
PROVIDERS: PCP Family Medicine; Visit Provider Internal Medicine Nephrology
DX: D50.9 Iron deficiency anemia, unspecified (principal); Z79.899 Other long term (current) drug therapy
CPT/HCPCS: 96365; 96366; 96375; J1200; J1750; J7030; J7040; J9999